=== PATIENT | female | born 1990 | race Caucasian/White ===

== ENCOUNTER 2020-12-08 20:37 | Emergency (ER) | payer MEDICAID ==
[~2020-12-08] VITALS: Ht 162.6 cm; Wt 57.7 kg
--- NOTE | 2020-12-08 21:24 | NUR ---
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 AMBULATORY WITH STEADY GAIT.
--- NOTE | 2020-12-08 21:33 | NUR ---
INITIAL PT CONTACT. PT PRESENTS TO ED C/O UMBILICAL ABD PAIN XMULTIPLE DAYS. PT DENIES ANY CHANGE IN BOWEL OR BLADDER HABITS, NO NAUSEA OR VOMITING. DENIES . PT SITTING UPRIGHT ON GURNEY, NADN, VSS. SIGNIFICANT OTHER AT BEDSIDE. NO ADDITIONAL NEEDS AT THIS TIME. CALL LIGHT AND PERSONAL BELONGINGS WITHIN REACH. AWAITING ERP
--- NOTE | 2020-12-08 22:00 | NUR ---
ERP AT BEDSIDE
--- NOTE | 2020-12-08 22:21 | NUR ---
PT AMBULATORY WITH STEADY GAIT WITH THIS RN TO BATHROOM TO PROVIDE URINE SAMPLE
[2020-12-08] MEDS ORDERED: SODIUM CHLORIDE FLUSH 10ML SYR IVF ONE (22:30)
[2020-12-08 22:33] LABS: BASOPHILS % (AUTO) 1 % (0-1); EOSINOPHILS % (AUTO) 2 % (1-7); LYMPHOCYTES % (AUTO) 28 % (22-44); MEAN CORPUSCULAR HEMOGLOBIN 29.3 pg (27.0-34.8); MEAN CORPUSCULAR HGB CONC 33.8 g/dL (32.4-35.8); MONOCYTES % (AUTO) 5 % (2-9); NEUTROPHILS % (AUTO) 64 % (42-75); PLATELET COUNT 296 x10^3/uL (130-400); RED BLOOD COUNT 4.53 x10^6/uL (3.82-5.3); RED CELL DISTRIBUTION WIDTH 14.2 % (9.6-15.2)
[2020-12-08 22:38] LABS: MICROSCOPIC INDICATED
[2020-12-08 22:45] LABS: ALANINE AMINOTRANSFERASE 17 U/L (12-78); ALBUMIN 3.8 g/dL (3.4-5.0); ANION GAP 5 mmol/L (5-15); CALCIUM 8.7 mg/dL (8.5-10.1); CHLORIDE 107 mmol/L (98-107); CREATININE 0.62 mg/dL (0.55-1.02)
[2020-12-08 22:50] LABS: ALKALINE PHOSPHATASE 54 U/L (45-117); BILIRUBIN,TOTAL 0.4 mg/dL (0.2-1.0); TOTAL PROTEIN 7.8 g/dL (6.4-8.2)
--- NOTE | 2020-12-08 23:05 | NUR ---
PT TO IMAGING
[2020-12-08] MEDS ORDERED: OMNIPAQUE 350 MG/ML, 100ML BOTTLE ONE (23:14)
--- NOTE | 2020-12-09 00:13 | NUR ---
THIS FLOAT RN AT BEDSIDE TO DC PT FOR PRIMARY RN, FAUSTO. PT AND FRIEND VERBALIZED UNDERSTANDING TO DC INSTRUCTIONS. AMBULATORY TO CHECKOUT C STEADY GAIT. VSS.
[2020-12-09 00:15] VITALS: BP 108/65
== END 2020-12-09 00:18 | disposition home or self-care (01) ==
LOC: ED 23:50
DX: R10.33 Periumbilical pain (principal); R10.31 Right lower quadrant pain
CPT/HCPCS: 36415; 74177; 80053; 81001; 83690; 84703; 85025; 87086; 99285; Q9967